=== PATIENT | male | born 1980 | race Hispanic/Latino ===

== ENCOUNTER 2024-06-10 10:28 | Emergency (ER) | payer OTHER ==
[~2024-06-10] VITALS: Ht 172.7 cm; Wt 127.0 kg
[2024-06-10 10:47] VITALS: BP 141/89
[2024-06-10 11:01] VITALS: BP 113/75
[2024-06-10] MEDS ORDERED: KETOROLAC TROMETHAMINE 30 MG/ML SDV IM ONE (11:15)
[2024-06-10 11:16] VITALS: BP 109/72
[2024-06-10 11:31] VITALS: BP 138/84
[2024-06-10 11:46] VITALS: BP 123/74
[2024-06-10] MEDS ORDERED: TAM75CAP PO (11:55)
[2024-06-10 12:00] VITALS: BP 117/73
== END 2024-06-10 12:18 | disposition home or self-care (01) ==
LOC: ED 10:28
DX: J10.1 Influenza due to other identified influenza virus with other respiratory manifestations (principal); R51.9 Headache, unspecified; Z20.822 Contact with and (suspected) exposure to COVID-19